=== PATIENT | male | born 1960 | race Caucasian/White ===

== ENCOUNTER 2016-11-12 11:45 | Emergency (ER) | payer OTHER ==
[~2016-11-12] VITALS: Ht 167.6 cm; Wt 74.8 kg
--- NOTE | 2016-11-12 12:40 | ED GI/GU/ABDOMINAL COMPLAINT ---
History of Present Illness General Chief Complaint: Male Genitourinary Problems Stated Complaint: BLOOD IN URINE Source: patient, old records Exam Limitations: no limitations Vital Signs & Intake/Output Vital Signs & Intake/Output Vital Signs Date Time Temp Pulse Resp B/P Pulse O2 O2 Flow FiO2 Ox Delivery Rate 11/12 1423 96.9 72 18 132/82 93 Room Air 11/12 1221 Room Air 11/12 1204 97.8 85 97 154/100 98 Room Air Allergies Coded Allergies: naproxen (Severe, HIVES 11/12/16) Triage Note: 56 Y/O MALE C/O R SIDED ABDOMINAL PAIN X 2-3 WEEKS. STATES IT INITIALLY WAS INTERMITTENT BUT HAS BECOME MORE CONSTANT. HAD HERNIA SURGERY AND BOWEL RESECTION AND ATTRIBUTES PAIN TO THAT. TOOK MEDS FOR PAIN THIS MORNING WITH NO RELIEF. +NAUSEA. DENIES N/V. ALSO REPORTS "RED DIARRHEA" THIS MORNING, APPROZ 10 EPISODES. DENIES HEMATURIA. DENIES BEING ON BLOOD THINNERS Triage Nurses Notes Reviewed? yes HPI: Patient presents with worsening right upper quadrant pain over the past 2 weeks. Patient had partial colon resection last year. Patient states that he was taking dicyclomine which was helping the pain but it is no longer helping the pain. The pain is sharp and crampy in nature. There is no radiation. There are no aggravating or mitigating factors. Patient also states that he chronically has watery diarrhea however intermittently over the past few days he has had bright red blood per rectum. Patient is scheduled for colonoscopy next month. Currently the pain is 10 out of 10. Past History Travel History Traveled to [place] past 21 day No Medical History Any Pertinent Medical History? see below for history Neurological: NONE EENT: NONE Cardiovascular: NONE Respiratory: NONE Gastrointestinal: BOWEL RESECTION Hepatic: NONE Renal: NONE Musculoskeletal: NONE Psychiatric: NONE Endocrine: diabetes Blood Disorders: NONE Cancer(s): NONE [employer]/Reproductive: NONE Surgical History Surgical History: non-contributory Psychosocial History What is your primary language Romanian Tobacco Use: Current Not Daily ETOH Use: occasional use Illicit Drug Use: denies illicit drug use Family History Hx Contributory? No Review of Systems Review of Systems Constitutional: Reports: no symptoms. EENTM: Reports: no symptoms. Respiratory: Reports: no symptoms. Cardiovascular: Reports: no symptoms. GI: Reports: see HPI, abdominal pain, bloody stool. Genitourinary: Reports: no symptoms. Musculoskeletal: Reports: no symptoms. Skin: Reports: no symptoms. Neurological/Psychological: Reports: no symptoms. Hematologic/Endocrine: Reports: no symptoms. Immunologic/Allergic: Reports: no symptoms. All Other Systems: Reviewed and Negative Physical Exam Physical Exam General Appearance: well developed/nourished, alert, awake, moderate distress Head: atraumatic, normal appearance Eyes: Bilateral: PERRL, EOMI. Ears, Nose, Throat, Mouth: hearing grossly normal, moist mucous membrane Neck: normal inspection, supple, full range of motion Respiratory: normal breath sounds, chest non-tender, no respiratory distress, lungs clear Cardiovascular: regular rate/rhythm, normal peripheral pulses Gastrointestinal: normal bowel sounds, soft, no organomegaly, tenderness (RUQ TENDERNESS, NO REBOUND, ) Rectal: NO STOOL IN VAULT, HEME POSITIVE Back: normal inspection, normal range of motion Extremities: normal range of motion Neurologic/Psych: no motor/sensory deficits, awake, alert, oriented x 3, normal mood/affect Skin: intact, normal color, warm/dry Core Measures ACS in differential dx? No Severe Sepsis Present: No Septic Shock Present: No Progress Differential Diagnosis: bowel obstruction, colon cancer, cholecystitis, diverticulitis, gastritis, hepatitis, ischemic bowel, inflamm bowel dis Plan of Care: Orders Procedure Date/time Status PARTIAL THROMBOPLASTIN TIME 11/12 1234 Complete PROTHROMBIN TIME 11/12 1234 Complete COMPREHENSIVE METABOLIC PANEL 11/12 1234 Complete CBC WITHOUT DIFFERENTIAL 11/12 1234 Complete URINALYSIS 11/12 1214 Complete Laboratory Tests 11/12/16 1244: Anion Gap 7, Estimated GFR > 60, BUN/Creatinine Ratio 20.0, Glucose 123 H, Calcium 9.9, Total Bilirubin 0.4, AST 26, ALT 41, Alkaline Phosphatase 72, Total Protein 7.1, Albumin 4.4, Globulin 2.7, Albumin/Globulin Ratio 1.6, PT 10.8, INR 1.03, APTT 33, CBC w Diff NO MAN DIFF REQ, RBC 5.43, MCV 84.3, MCH 27.9, RDW 13.8, MPV 7.2 L, Gran % 64.1, Lymphocytes % 20.2 L, Monocytes % 10.2 H, Eosinophils % 5.3 H, Basophils % 0.2, Absolute Granulocytes 6.2, Absolute Lymphocytes 2.0, Absolute Monocytes 1.0 H, Absolute Eosinophils 0.5, Absolute Basophils 0, PUBS MCHC 33.1, Urine Color YEL, Urine Clarity CLEAR, Urine pH 6.5, Ur Specific [place] 1.025, Urine Protein NEG, Urine Ketones TRACE H, Urine Nitrite NEG, Urine Bilirubin NEG, Urine Urobilinogen 0.2, Ur Leukocyte Esterase NEG, Ur Microscopic EXAM NOT REQUIRED, Urine Hemoglobin NEG, Urine Glucose NEG Diagnostic Imaging: Viewed by Me: CT Scan. Discussed w/RAD: CT Scan. Radiology Impression: PATIENT: MAYA OTTO PRESENT AGE: 56 PATIENT ACCOUNT NO: [id number] : 58 LOCATION: [facility] ORDERING PHYSICIAN: LELE CURIEL MD SERVICE DATE: 11/12/16 EXAM TYPE: CAT - CT ABD & PELVIS W IV CONTRAST EXAMINATION: CT ABDOMEN AND PELVIS WITH CONTRAST CLINICAL INFORMATION: Right upper quadrant pain. Status post colonic resection. Evaluate for an obstruction. COMPARISON: No relevant prior studies are available for comparison. TECHNIQUE: Multidetector volumetric imaging was performed of the abdomen and pelvis before and after the IV administration of 95 mL of Optiray 320 intravenous contrast. Sagittal and coronal reformatted images were obtained on the technologist's workstation. DLP: 282.10 mGy-cm FINDINGS: LUNG BASES: There are mild bibasilar dependent atelectatic changes, right greater than left. LIVER, GALLBLADDER, AND BILIARY TREE: The liver is normal in size, shape, and attenuation. No focal hepatic lesion or biliary ductal dilatation is present. The gallbladder is unremarkable with no evidence of radiopaque gallstones, gallbladder wall thickening, or obvious pericholecystic inflammatory changes. PANCREAS: Unremarkable. SPLEEN: Unremarkable. ADRENAL GLANDS: Unremarkable. KIDNEYS AND URETERS: The kidneys are normal in size, shape, and attenuation. No hydronephrosis, hydroureter, or calculi seen. No perinephric stranding. BLADDER: Unremarkable. GASTROINTESTINAL TRACT: There is no intra-abdominal free air or free fluid. There is no large or small-bowel obstruction. An unremarkable small-bowel anastomosis is noted within the right lower quadrant without evidence of leak or obstruction. There are multiple prominent colonic diverticula without adjacent inflammatory change to suggest acute diverticulitis. The appendix is normal in appearance. ABDOMINAL WALL: There is a small fat-containing left inguinal hernia. LYMPH NODES: Normal. VASCULAR: Contrast opacifies the abdominal aorta and its branch vessels. There are scattered atherosclerotic calcifications. The IVC is unremarkable. PELVIC VISCERA: Coarse calcifications are noted within the prostate. OSSEOUS STRUCTURES : There are mild degenerative changes within the bilateral sacroiliac joints anteriorly. There is an 8 mm enostosis within the left iliac bone. There is mild facet arthropathy in the lower lumbar spine. IMPRESSION: 1. No large- or small- bowel obstruction. Small-bowel anastomosis within the right lower quadrant without evidence of leak or obstruction. 2. Diverticulosis. 3. Normal appendix. DICTATED BY: STEFANO SHELDON MD DATE/TIME DICTATED:11/12/161417 [employer] AND [employer]TURE MAKER:JUNI DATE/TIME TRANSCRIBED:11/12/161417 CONFIDENTIAL, DO NOT COPY WITHOUT APPROPRIATE AUTHORIZATION. <Electronically signed in Other Vendor System> SIGNED BY: STEFANO SHELDON MD 11/12/16 1444 Initial ED EKG: none Departure Departure Disposition: HOME OR SELF CARE Condition: Stable Clinical Impression Primary Impression: Upper abdominal pain, unspecified Secondary Impressions: LGI bleed Referrals: JULY WREN,SANTOS Garcia (PCP/Family) Additional Instructions: FOLLOW UP WITH GASTROENTEROLOGY RETURN IF SYMPTOMS WORSEN OR FOR ANY COMPLAINTS Departure Forms: Customer Survey General Discharge Information Prescriptions: Current Visit Scripts Ketorolac Tromethamine 1 TAB PO Q6P PRN PAIN #20 TAB
[2016-11-12 13:00] LABS: ABSOLUTE BASOPHIL COUNT 0 /CUMM (0.0-0.2); ABSOLUTE EOSINOPHIL COUNT 0.5 /CUMM (0.0-0.7); ABSOLUTE GRANULOCYTE CT 6.2 /CUMM (1.4-6.5); BASOPHIL % 0.2 % (0.0-2.0); EOSINOPHIL % 5.3 % (0-5); GRANULOCYTE % 64.1 % (42.2-75.2); HEMATOCRIT 45.8 % (42-52); MEAN CORPUSCULAR HGB 27.9 PG (27.0-31.0); MEAN CORPUSCULAR HGB CONC 33.1 G/DL (33.0-37.0); MEAN CORPUSCULAR VOLUME 84.3 FL (80.0-94.0); MEAN PLATELET VOLUME 7.2 FL (7.4-10.4); PLATELET COUNT 290 /CUMM (130-400); RBC DISTRIBUTION WIDTH 13.8 % (11.5-14.5); RED BLOOD CELL CT 5.43 /CUMM (4.70-6.10); WHITE BLOOD CELL COUNT 9.6 /CUMM (4.8-10.8)
[2016-11-12 13:08] LABS: PT 10.8 SEC (9.4-12.5); PTT 33 SEC (25-37)
[2016-11-12 14:23] VITALS: BP 132/82
--- NOTE | 2016-11-12 14:44 | CT SCAN REPORT ---
EXAMINATION: CT ABDOMEN AND PELVIS WITH CONTRAST CLINICAL INFORMATION: Right upper quadrant pain. Status post colonic resection. Evaluate for an obstruction. COMPARISON: No relevant prior studies are available for comparison. TECHNIQUE: Multidetector volumetric imaging was performed of the abdomen and pelvis before and after the IV administration of 95 mL of Optiray 320 intravenous contrast. Sagittal and coronal reformatted images were obtained on the technologist's workstation. DLP: 282.10 mGy-cm FINDINGS: LUNG BASES: There are mild bibasilar dependent atelectatic changes, right greater than left. LIVER, GALLBLADDER, AND BILIARY TREE: The liver is normal in size, shape, and attenuation. No focal hepatic lesion or biliary ductal dilatation is present. The gallbladder is unremarkable with no evidence of radiopaque gallstones, gallbladder wall thickening, or obvious pericholecystic inflammatory changes. PANCREAS: Unremarkable. SPLEEN: Unremarkable. ADRENAL GLANDS: Unremarkable. KIDNEYS AND URETERS: The kidneys are normal in size, shape, and attenuation. No hydronephrosis, hydroureter, or calculi seen. No perinephric stranding. BLADDER: Unremarkable. GASTROINTESTINAL TRACT: There is no intra-abdominal free air or free fluid. There is no large or small-bowel obstruction. An unremarkable small-bowel anastomosis is noted within the right lower quadrant without evidence of leak or obstruction. There are multiple prominent colonic diverticula without adjacent inflammatory change to suggest acute diverticulitis. The appendix is normal in appearance. ABDOMINAL WALL: There is a small fat-containing left inguinal hernia. LYMPH NODES: Normal. VASCULAR: Contrast opacifies the abdominal aorta and its branch vessels. There are scattered atherosclerotic calcifications. The IVC is unremarkable. PELVIC VISCERA: Coarse calcifications are noted within the prostate. OSSEOUS STRUCTURES: There are mild degenerative changes within the bilateral sacroiliac joints anteriorly. There is an 8 mm enostosis within the left iliac bone. There is mild facet arthropathy in the lower lumbar spine. IMPRESSION: 1. No large- or small-bowel obstruction. Small-bowel anastomosis within the right lower quadrant without evidence of leak or obstruction. 2. Diverticulosis. 3. Normal appendix.
[2016-11-12] MEDS ORDERED: KETOROLAC TROME10 M1 PO (14:52)
== END 2016-11-12 14:59 ==
LOC: ERH 11:45
PROVIDERS: Emergency Medicine
DX: K92.2 Gastrointestinal hemorrhage, unspecified (principal)
CPT/HCPCS: 74177; 81003; 96374; J1885